=== PATIENT | female | born 2000 | race Two or more races ===

== ENCOUNTER 2022-02-25 02:03 | Emergency (ER) | payer MEDICAID, OTHER ==
[~2022-02-25] VITALS: Ht 170.2 cm; Wt 90.9 kg
[2022-02-25] MEDS ORDERED: DIPH25CA66 PO (05:09)
[2022-02-25] MEDS ORDERED: PRED20TA2 PO (05:09)
[2022-02-25] MEDS ORDERED: diphenhdrAMINE HCL 25 MG CAP PO ONE (05:15)
[2022-02-25] MEDS ORDERED: predniSONE 20 MG TAB PO ONE (05:15)
[2022-02-25 05:21] VITALS: BP 149/89
== END 2022-02-25 05:23 | disposition home or self-care (01) ==
LOC: ER 02:06
DX: T78.40XA Allergy, unspecified, initial encounter (principal); X58.XXXA Exposure to other specified factors, initial encounter
CPT/HCPCS: 99283; J7512